=== PATIENT | male | born 1970 | race Caucasian/White ===

== ENCOUNTER 2018-01-05 17:54 | Emergency (ER) | payer BC ==
[~2018-01-05] VITALS: Ht 165.1 cm; Wt 68.0 kg
[2018-01-05] MEDS ORDERED: IV NS 0.9% 1,000 ML BAG IV ONE (18:30)
[2018-01-05 18:43] LABS: BASOPHILS % (AUTO) 0.6 % (0.0-2.0); EOSINOPHILS % (AUTO) 0.6 % (0.0-6.0); HEMATOCRIT 42 % (39-51); HEMOGLOBIN 14.9 g/dL (13.5-17.5); LYMPHOCYTES # (AUTO) 2.3 /CMM (0.8-4.8); LYMPHOCYTES % (AUTO) 32.2 % (20.0-44.0); MEAN CORPUSCULAR HGB CONC 35 g/dl (31.0-36.0); MEAN CORPUSCULAR VOLUME 93 fL (80-96); MONOCYTES # (AUTO) 0.7 /CMM (0.1-1.30); MONOCYTES % (AUTO) 10.1 % (2.0-12.0); NEUTROPHILS # (AUTO) 4.3 /CMM (1.8-8.9); NEUTROPHILS % (AUTO) 56.5 % (43.0-81.0); PLATELET COUNT (AUTO) 170 /CMM (150-450); RDW COEFFICIENT OF VARIATION 12.3 (11.5-15.0); RED BLOOD CELL COUNT(AUTO) 4.55 MIL/uL (4.5-6.0); WHITE BLOOD COUNT (AUTO) 7.3 K/uL (4.3-11.0)
[2018-01-05 18:46] LABS: CALCIUM, SERUM 8.8 mg/dL (8.5-10.1); CREATININE 1.4 mg/dL (0.6-1.3); POTASSIUM 3.9 mmol/L (3.5-5.1)
[2018-01-05 18:50] LABS: INR 0.91 (0.85-1.15)
[2018-01-05] MEDS ORDERED: MORPHINE SULFATE INJ 4 MG/ML DISP.SYRIN ONE ×2 (19:02→19:46)
[2018-01-05] MEDS ORDERED: ONDANSETRON HCL/PF 4 MG/2 ML VIAL ONE (19:02)
--- NOTE | 2018-01-05 19:06 | NUR ---
VERBAL ORDER DR NAVA MORPHINE 4MG IV ZOFRAN 4 MG IV X1 FOR ABD PAIN
--- NOTE | 2018-01-05 19:08 | NUR ---
REPORT GIVEN TO DILLON FOR YANELIS
--- NOTE | 2018-01-05 19:13 | NUR ---
Danica kahn in [facility] - 01/05/18 at 1914 by CONRAD REPORT RECEIVED FROM ERIC SAINI FOR YANELIS.
--- NOTE | 2018-01-05 19:15 | NUR ---
REPORT RECEIVED FROM ERIC SAINI FOR YANELIS.
[2018-01-05 19:56] LABS: APPEARANCE,URINE Clear (CLEAR); BILIRUBIN,URINE Negative (NEGATIVE); BLOOD, URINE Small Ery/uL (NEGATIVE); COLOR,URINE Yellow (YELLOW); KETONES,URINE Negative (NEGATIVE); LEUKOCYTE ESTERASE ,URINE Negative (NEGATIVE); NITRITE, URINE Negative (NEGATIVE); PROTEIN,URINE Negative (NEGATIVE); UGLUCOSE Negative (NEGATIVE); UROBILINOGEN,URINE 0.2 EU/dL (0.2)
[2018-01-05] MEDS ORDERED: ONDANSETRON HCL/PF - ER 4 MG/2 ML VIAL IV ONE ×2 (20:00→21:00)
[2018-01-05] MEDS ORDERED: DIATR MEGLU/DIATRIZOATE SODIUM 30 ML BOTTLE (GASTROGRAPHIN) PO ONE (20:00)
[2018-01-05] MEDS ORDERED: MORPHINE SULFATE INJ 2 MG/ML DISP.SYRIN IV ONE ×2 (20:00→20:30)
[2018-01-05 20:11] LABS: BACTERIA,URINE None seen /HPF (None Seen); SQUAMOUS EPITHELIAL CELL,UR None Seen /HPF (None Seen); WBC,URINE NONE SEEN /HPF (0-3)
[2018-01-05] MEDS ORDERED: HYDROMORPHONE 1 MG/1 ML DISP.SYRIN IV ONE ×2 (21:00)
--- NOTE | 2018-01-05 21:05 | NUR ---
MD AT BEDSIDE SPEAKING WITH PATIENT.
[2018-01-05] MEDS ORDERED: DIATR MEGLU/DIATRIZOATE SODIUM 120 ML BOTTLE (GASTROGRAPHIN) ONE (21:13)
[2018-01-05 21:52] LABS: BILIRUBIN,DIRECT 0.2 mg/dL (0.0-0.2)
[2018-01-05] MEDS ORDERED: TAMSULOSIN 0.4 MG CAP.SR.24H ONE (21:58)
[2018-01-05] MEDS ORDERED: TAMSULOSIN 0.4 MG CAP.SR.24H PO ONE (22:00)
--- NOTE | 2018-01-05 22:30 | NUR ---
IV removed. Catheter intact and site benign. Pressure and 4x4 applied to site. No bleeding noted. Patient discharged with to home in stable condition. Written and verbal after care instructions given, patient instructed not to drive. Patient verbalizes understanding of instruction. Patient is awake and alert to self, day, and place. Patient ambulatory with a steady gait.
[2018-01-05 22:32] VITALS: BP 120/88
== END 2018-01-05 22:32 | disposition home or self-care (01) ==
LOC: ER 18:00
DX: N20.0 Calculus of kidney (principal); K42.9 Umbilical hernia without obstruction or gangrene
CPT/HCPCS: 36415; 74176; 80048; 81001; 82247; 82248; 83605 ×2; 85025; 85730; 96360; 96374; 96375; 96376; 99285; A4606; J2270 ×2; J2405 ×3; J7030; Q9963 ×2; Z7610; 81000-TC